=== PATIENT | female | born 1925 | race Caucasian/White ===

== ENCOUNTER → 2016-08-02 | Outpatient (CLI) | payer MEDICARE, OTHER ==
[~2016-08-02] MED LIST: CLOPIDOGREL 75MG TABLETS; ENAL5TAB; ENALAPRIL PO; FLUC100T34; GLIP-115; HYDR-3682 PO; HYDROCHLOROTHIAZIDE PO; PREDNISONE 20 MG
[2016-08-02 12:00] VITALS: BP 140/81
[2016-08-02 12:55] VITALS: BP 148/91
== END | disposition home or self-care (01) ==
LOC: CHF HDHVI 11:49
PROVIDERS: ATTEND Internal Medicine Cardiovascular Disease
DX: F03.90 Unspecified dementia, unspecified severity, without behavioral disturbance, psychotic disturbance, mood disturbance, and anxiety (principal); L98.8 Other specified disorders of the skin and subcutaneous tissue
CPT/HCPCS: 82962; G0463

== ENCOUNTER 2016-08-23 17:47 | Emergency (ER) | payer MEDICARE, OTHER ==
[2016-08-23 18:09] VITALS: BP 140/74
[2016-08-23 18:56] LABS: Albumin 3.5 g/dL (3.4-5.0); Bilirubin, Total 0.4 mg/dL (0.2-1.0); Calcium 8.9 mg/dL (8.5-10.1); Magnesium 2.7 mg/dL (1.6-2.6); Potassium 3.5 mmol/L (3.5-5.1)
[2016-08-23 19:22] LABS: Basophils # (auto) 0 uL; Basophils % (auto) 0.4 % (0.0-2.0); Eosinophils # (auto) 0.2 uL; Eosinophils % (auto) 3.8 % (0.0-7.0); Hemoglobin 11.3 g/dL (12.2-16.2); Lymphocytes # (auto) 1.8 uL; Lymphocytes % (auto) 34.4 % (10.0-50.0); Mean Corpuscular Hemoglobin 30.3 pg (28.0-32.0); Mean Corpuscular Hgb Conc. 31.3 g/dL (32.0-36.0); Mean Corpuscular Volume 96.7 fL (80.0-100.0); Mean Platelet Volume 8.2 fL (7.4-10.4); Monocytes # (auto) 0.4 uL; Monocytes % (auto) 6.9 % (0.0-12.0); Neutrophils # (auto) 2.9 uL; Neutrophils % (auto) 54.5 % (37.0-80.0); Platelet Count (auto) 227 10^3/uL (140-450); Red Cell Distribution Width 18.8 % (11.6-16.0); White Blood Cell 5.3 10^3/uL (4.4-10.8)
== END 2016-08-24 00:19 | disposition left against medical advice (07) ==
LOC: ER 17:51
DX: R42 Dizziness and giddiness (principal); Z53.21 Procedure and treatment not carried out due to patient leaving prior to being seen by health care provider
CPT/HCPCS: 36415; 80053; 83735; 84484; 85025; 93005